=== PATIENT | female | born 1960 | race Caucasian/White ===

== ENCOUNTER → 2016-08-15 | Outpatient (CLI) | payer OTHER ==
[~2016-08-15] MED LIST: HYDR12.55 PO; TRIA0.1C20 TOP; [UNRECOGNIZED DRUG - CODE] PO
--- NOTE | 2016-08-15 16:29 | MAMMOGRAPHY REPORT ---
BILATERAL DIGITAL SCREENING MAMMOGRAM TOMOSYNTHESIS WITH CAD: 08/15/2016 TECHNIQUE: Breast tomosynthesis in addition to standard 2D mammography was performed. Current study was also evaluated with a Computer Aided Detection (CAD) system. COMPARISON: Comparison is made to exams dated: 08/06/2015 mammogram, 08/03/2014 mammogram, 08/02/2013 mammogram, 02/02/2012 mammogram, 07/24/2011 mammogram, and 07/18/2010 mammogram - [facility]. BREAST COMPOSITION: There are scattered areas of fibroglandular density in both breasts. FINDINGS: No suspicious masses, calcifications, or areas of architectural distortion are noted in e ither breast. There has been no significant interval change compared to prior exams. IMPRESSION: ACR BI-RADS CATEGORY 1: NEGATIVE There is no mammographic evidence of malignancy. A 1 year screening mammogram is recommended. The p atient will receive written notification of the results. Approximately 10% of breast cancers are not detected with mammography. A negative mammographic repor t should not delay biopsy if a clinically suggestive mass is present. Marva Orourke M.D. /:08/15/2016 13:40:33 Theatrical Scenic Designer: Arline Caba, [facility] letter sent: Normal 1/2 BI-RADS Code: ACR BI-RADS Category 1: Negative
== END | disposition home or self-care (01) ==
LOC: C.MAMM 10:36
PROVIDERS: ATTEND Obstetrics & Gynecology
DX: Z12.31 Encounter for screening mammogram for malignant neoplasm of breast (principal)

== ENCOUNTER → 2016-09-04 | Outpatient (CLI) | payer OTHER ==
[2016-09-04 12:09] LABS: BASO % 0.8 %; BASO ABS # 0.04 K/uL (0-0.2); COMPLETE YES; EOS % 4.9 %; HEMATOCRIT 42.6 % (37-47); IG% 0.2 %; LYMPH % 22.8 %; LYMPH ABS # 1.11 K/uL (1.2-3.4); MEAN CELL VOLUME 89.3 fL (80-100); MEAN CORPUSCULAR HEMOGLOBIN 30.2 pg (25-34); MEAN CORPUSCULAR HGB CONC 33.8 g/dl (32-36); MEAN PLATELET VOLUME 12.2 fL (7.4-10.4); MONO % 8.6 %; NEUT % 62.7 %; PLATELET COUNT 226 K/uL (130-400); RED BLOOD COUNT 4.77 M/uL (4.2-5.4); WHITE BLOOD COUNT 4.87 K/uL (4.8-10.8)
[2016-09-04 13:46] LABS: BLOOD UREA NITROGEN 24 mg/dl (7-18); BUN/CREATININE RATIO 20.1 (10-20); CALCIUM 9.3 mg/dl (8.5-10.1); CARBON DIOXIDE 27 mmol/L (21-32); CHLORIDE 110 mmol/L (98-107); GLUCOSE 93 mg/dl (70-99); SODIUM 144 mmol/L (136-145)
== END | disposition home or self-care (01) ==
LOC: C.LABBFT 07:44
PROVIDERS: ATTEND Internal Medicine
DX: I10 Essential (primary) hypertension (principal)

== ENCOUNTER → 2017-04-30 | Outpatient (CLI) | payer OTHER | END | disposition home or self-care (01) | LOC: C.PAPS 10:33 | PROVIDERS: ATTEND Obstetrics & Gynecology | DX: Z12.4 Encounter for screening for malignant neoplasm of cervix (principal) ==

== ENCOUNTER → 2017-08-17 | Outpatient (CLI) | payer OTHER ==
--- NOTE | 2017-08-18 13:05 | MAMMOGRAPHY REPORT ---
BILATERAL DIGITAL SCREENING MAMMOGRAM TOMOSYNTHESIS WITH CAD: 08/17/2017 CLINICAL HISTORY: Routine screening. Patient has no complaints. TECHNIQUE: Breast tomosynthesis in addition to standard 2D mammography was performed. Current study was also evaluated with a Computer Aided Detection (CAD) system. COMPARISON: Comparison is made to exams dated: 08/15/2016 mammogram, 08/06/2015 mammogram, 08/03/2014 m ammogram, 07/27/2012 mammogram, 02/02/2012 mammogram, and 07/24/2011 mammogram - [facility] ter. BREAST COMPOSITION: There are scattered areas of fibroglandular density in both breasts. FINDINGS: There is fluctuating nodularity in the breasts. A few scattered benign-appearing microcalc ifications. No suspicious mass, architectural distortion or cluster of suspicious microcalcification s is seen. IMPRESSION: ACR BI-RADS CATEGORY 1: NEGATIVE There is no mammographic evidence of malignancy. A 1 year screening mammogram is recommended. The pa tient will receive written notification of the results. Approximately 10% of breast cancers are not detected with mammography. A negative mammographic report should not delay biopsy if a clinically suggestive mass is present. Shonna Edwards M.D. ay/:08/17/2017 17:20:52 Can Technician: Olive PRESTON)(Sharla), [facility] letter sent: Normal 1/2 BI-RADS Code: ACR BI-RADS Category 1: Negative
== END | disposition home or self-care (01) ==
LOC: C.MAMM 12:14
PROVIDERS: ATTEND Obstetrics & Gynecology
DX: Z12.31 Encounter for screening mammogram for malignant neoplasm of breast (principal)

== ENCOUNTER → 2017-09-02 | Outpatient (CLI) | payer OTHER ==
[2017-09-02 12:53] LABS: BASO % 1.1 %; BASO ABS # 0.05 K/uL (0-0.2); EOS ABS # 0.18 K/uL (0-0.5); HEMATOCRIT 41.9 % (37-47); HEMOGLOBIN 14.1 g/dL (12.0-16.0); IG# 0.01 K/uL (0.00-0.02); LYMPH ABS # 1.03 K/uL (1.2-3.4); MEAN CELL VOLUME 91.3 fL (80-100); MEAN CORPUSCULAR HEMOGLOBIN 30.7 pg (25-34); MEAN CORPUSCULAR HGB CONC 33.7 g/dl (32-36); MEAN PLATELET VOLUME 11.9 fL (7.4-10.4); MONO % 13.2 %; MONO ABS # 0.59 K/uL (0.11-0.59); NEUT % 58.5 %; NEUT ABS # 2.61 K/uL (1.4-6.5); PLATELET COUNT 232 K/uL (130-400); RED CELL DISTRIBUTION WIDTH CV 13.3 % (11.5-14.5); RED CELL DISTRIBUTION WIDTH SD 44.4 fL (36.4-46.3); WHITE BLOOD COUNT 4.47 K/uL (4.8-10.8)
[2017-09-02 13:26] LABS: ALT/SGPT 53 U/L (12-78); AST/SGOT 30 U/L (15-37); BLOOD UREA NITROGEN 18 mg/dl (7-18); CALCIUM 9.3 mg/dl (8.5-10.1); CARBON DIOXIDE 30 mmol/L (21-32); CHOLESTEROL 139 mg/dl (0-200); CREATININE 1.34 mg/dl (0.60-1.20); GLUCOSE 99 mg/dl (70-99); SODIUM 139 mmol/L (136-145)
[2017-09-02 13:35] LABS: ALKALINE PHOSPHATASE 130 U/L (45-117); LDL CHOLESTEROL CALCULATED 83 mg/dl; TOTAL PROTEIN 7.3 gm/dl (6.4-8.2)
== END | disposition home or self-care (01) ==
LOC: C.LABBFT 07:58
PROVIDERS: ATTEND Physician Assistant Medical
DX: Z00.00 Encounter for general adult medical examination without abnormal findings (principal); I10 Essential (primary) hypertension; G25.81 Restless legs syndrome

== ENCOUNTER 2024-02-14 22:33 | Observation (INO) ==
[2024-02-14] MEDS: ONDANSETRON INJ 2 MG/ML 2 ML VIAL ONE (23:06)
[2024-02-14] MEDS: fentaNYL citrate PF 100 MCG/2 ML VIAL IV STA (23:12)
[2024-02-14] MEDS: OPTIRAY 320 125ml IV ONE (23:27)
[2024-02-14 23:34] LABS: Basophils # (auto) 0.04 K/uL (0.00-0.20); Basophils % (auto) 0.5 %; Eosinophils # (auto) 0.11 K/uL (0.00-0.50); Eosinophils % (auto) 1.5 %; Hematocrit (blood only) 41.8 % (37.0-47.0); Hemoglobin 13.9 g/dl (12.0-16.0); Immature Granulocytes # (auto) 0.03 K/uL (0.01-0.20); Immature Granulocytes % (auto) 0.4 %; Lymphocytes # (auto) 0.87 K/uL (1.20-3.40); Lymphocytes % (auto) 11.6 %; Mean Corpuscular Hemoglobin 30.2 pg (25.0-34.0); Mean Corpuscular Hgb Conc 33.3 g/dL (32.0-36.0); Mean Corpuscular Volume 90.7 fL (80.0-100.0); Mean Platelet Volume 11.2 fL (9.4-12.4); Monocytes # (auto) 0.61 K/uL (0.11-0.59); Monocytes % (auto) 8.1 %; Neutrophils # (auto) 5.86 K/uL (1.40-6.50); Neutrophils % (auto) 77.9 %; Platelet Count 235 K/uL (130-400); RDW Coefficient of Variation 12.2 % (11.5-14.5); RDW Standard Deviation 40.3 fL (36.4-46.3); Red Blood Count 4.61 M/uL (4.20-5.40); White Blood Count 7.52 K/ul (4.8-10.8)
--- NOTE | 2024-02-14 23:40 | Emergency Department Note ---
Impression & Plan Acute cholecystitis admit to general surgery-Dr. Hood ED Provider Note NAME: MOISES DELGADILLO AGE: 63 SEX: Female INFORMANT: Patient ED PROVIDER(S): Elenita Almazan DO CHIEF COMPLAINT: Epigastric abdominal pain PLAN: Disposition: admit to Dr. Hood MEDICAL DECISION MAKING: this 63-year-old female patient presents to the emergency department with ongoing epigastric abdominal pain since 2 PM this afternoon. she states that she cannot get comfortable and that the pain radiates through to her back. Patient then developed severe vomiting. While I was in the room evaluating the patient, she had an episode of narrow complex tachycardia on the monitor. She has no cardiac history. She does have a history of hypertension laboratory studies revealed no leukocytosis or anemia. Potassium was slightly low at 3.3. BUN was elevated at 27 creatinine at 1.22. Troponin was negative. The patient was bolused with IV normal saline solution given dose of IV fentanyl and IV Zofran. Patient had a CT scan of the chest and abdomen to rule out aortic dissection. These were negative. Patient is nausea and epigastric abdominal pain seemed to continue and become more localized in the right upper quadrant of the abdomen. She was given a dose of IV Pepcid and went for ultrasound of the gallbladder. This was concerning for acute cholecystitis. I reviewed the results with the patient and her . I discussed the case with Dr. Hood and he will evaluate for further inpatient care. Care/management discussed with: funeral sales manager, Dr. Hood from general surgery Triage Nursing notes: reviewed and agree with them. Vital Signs: reviewed and remarkable for Hypertension Differential Diagnosis: pancreatitis, gastritis, aortic dissection, ulcerative disease, cardiac ischemia, cardiac dysrhythmia Diagnostics, independently interpreted by me: ECG: normal sinus rhythm at a rate of 69 with a right bundle branch block. There is no ST segment elevation or signs of ischemia. There is no ectopy. QTc was 490 ms. I did review this EKG to an EKG from 2019 and it was unchanged. Cardiac Monitoring: Normal sinus rhythm at 77 Imaging studies: CTA scan of the chest: As per stat rad CTA scan of the abdomen/pelvis: As per stat rad right upper quadrant ultrasound: As per stat rad HPI: 63 year old Female arrives for evaluation of epigastric abdominal pain and vomiting. patient had a fairly sudden onset of epigastric abdominal pain and vomiting around 2:00 this afternoon. Patient had been in her usual state of health until that time. She had eaten a hamburger and some velázquez before the pain started. PAST MEDICAL HISTORY: See Below, PAST SURGICAL HISTORY: See Below, SOCIAL HISTORY: See Below, HOME MEDICATIONS: see list ALLERGIES: see list VITALS: See Below PHYSICAL EXAMINATION: HEENT: Head - normocephalic and atraumatic. Pupils are equal, round, and reactive to light. Extraocular eye muscles are intact, and sclera are anicteric. Nose - moist nasal mucosa without discharge. Mouth - moist buccal mucosa. Oropharynx is nonerythematous and there is no tonsillar exudate or edema noted. Neck: Supple; no cervical lymphadenopathy Heart: Regular rate and rhythm. There is a normal S1 and S2 with no murmurs, clicks, or gallops appreciated. Lungs: Clear to auscultation bilaterally with no wheezes, rales, or rhonchi. Abdomen: Soft, Moderate pain to palpation in the epigastrium and right upper quadrant. Rest of the abdomen is nondistended, with good bowel sounds. There are no palpable pulsatile masses or hepatosplenomegaly. There is no guarding, rigidity, or rebound noted. Extremities: No evidence of cyanosis, clubbing, or edema. There are easily palpable peripheral pulses. Skin: warm and dry with good turgor and no rashes. emergency department treatment: groundwater monitoring technician, IV fentanyl, IV Zofran, IV normal saline, IV Pepcid emergency department course: The patient was evaluated in room B-11. A complete history and physical was performed. IV lock was initiated and labs were drawn as above. Patient was given a dose of Zofran and fentanyl for her pain and nausea. An order was placed for continuous cardiac monitoring. The patient is in a normal sinus rhythm at a rate of 77. A twelve-lead EKG was obtained.. She was thought to be somewhat dehydrated and was bolused with IV normal saline solution. While I was in the room examining the patient, I noted on the bus driver/monitor that she was in a tachycardic rhythm for a short period of time. This rhythm appeared to be sinus tachycardia and was narrow complex.The patient went for CT angiogram of the chest and abdomen to rule out aortic dissection. Upon returning from radiology, the patient continued to complain of some epigastric discomfort was given a dose of IV Pepcid. I reexamined the patient and her reproducible discomfort was more in the right upper quadrant of the abdomen. Patient went for an ultrasound of the gallbladder which was positive for acute cholecystitis. Patient was kept n.p.o. and I discussed the case with Dr. Hood. Past Med/Surg History Problem List (Updated 02/15/24 @ 04:44 by Elenita Almazan DO) Acute cholecystitis (Acute) Localized morphea (Chronic) right side/ back Impaired fasting blood sugar (Chronic) Restless legs syndrome (Chronic) Mitral regurgitation (Chronic) trace Hypertension (Chronic) Allergic rhinitis (Chronic) Medical History Localized morphea Impaired fasting blood sugar Restless legs syndrome Mitral regurgitation Hypertension Allergic rhinitis Surgical History History of surgery on lower extremity History of colonoscopy History of breast biopsy History of tubal ligation Family History Father Lung cancer Mother Hypertension Dementia Aunt Breast cancer Denies family history of Ovarian cancer Colorectal cancer Cancer Uterine cancer Social History (Updated 09/16/23 @ 15:39 by Rain Valenzuela LPN) Smoking Status: Never smoker Second Hand Exposure: No; Do You Dip or Chew Tobacco: No; Hx Alcohol Use: No Hx Substance Use: No Preferred Language: Ethiopian Communication Ability: Effective Production Zone Leader Required: No Beliefs That Will Affect Care: None marital status: Current Living Situation: Spouse current occupational status: retired Feels Safe at Home: Yes Childhood Exposure to Second-Hand Smoke: Yes Diet: regular caffeine: Yes Dental Care, Regularly: Yes Physical Activity Frequency: 3-4 Times per Week Seatbelt Use: always Sunscreen Use: Yes Assistive Devices: Glasses Allergies Allergies Allergy/AdvReac Type Severity Reaction Status Date / Time adhesive tape Allergy Intermediate Rash Verified 09/16/23 15:32 erythromycin base Allergy Unknown Rash Verified 09/16/23 15:32 Penicillins Allergy Unknown RASH Verified 09/16/23 15:32 phenylephrine Allergy Unknown RASH-OTC Verified 09/16/23 15:32 DECONGESTANTS pseudoephedrine Allergy Unknown RASH-OTC Verified 09/16/23 15:32 DECONGESTANTS Sulfa (Sulfonamide Allergy Unknown RASH Verified 09/16/23 15:32 Antibiotics) doxycycline Allergy Unknown Verified 09/16/23 15:32 Home Meds Home Medications Medication Instructions Recorded Confirmed fexofenadine 180 mg tablet 180 mg PO DAILY PRN Allergy 02/19/19 09/16/23 Symptoms cholecalciferol (vitamin D3) 25 25 mcg PO DAILY 09/03/21 12/30/22 mcg (1,000 unit) capsule Previous Rx's Medication Instructions Recorded mupirocin 2 % topical ointment 1 applic topical BID #22 grams 03/11/22 clobetasol 0.05 % topical cream 1 applic topical BID 2 weeks #45 06/23/22 grams amlodipine 5 mg tablet 5 mg PO DAILY #90 tabs 07/02/23 clobetasol 0.05 % topical ointment 1 applic topical BID 2 weeks #45 09/16/23 grams hydrochlorothiazide 12.5 mg tablet 12.5 mg PO DAILY #90 tabs 02/05/24 Results & Data (ED) Vital Signs Vital Signs - 24 hr 02/14/24 22:36 02/14/24 22:47 02/14/24 22:47 Temperature 36.6 C 36.8 C Temperature Source Temporal Artery Scan Oral Pulse Rate 79 71 Pulse Rate [Apical] 73 Pulse Rate from SpO2 Sensor Respiratory Rate 16 14 Blood Pressure 128/76 Blood Pressure [Left Arm] 173/70 H Blood Pressure Mean 93 Blood Pressure Mean [Left Arm] 104 Pulse Oximetry 95 96 Oxygen Delivery Method Room Air Sepsis Recent Fever Within 48 Hours No Sepsis New/Unexplained Change in Mental Status No Sepsis Action Taken by Nursing No Action Required 02/14/24 23:04 02/14/24 23:08 02/14/24 23:31 Temperature Temperature Source Pulse Rate 77 72 Pulse Rate [Apical] Pulse Rate from SpO2 Sensor Respiratory Rate 16 26 H Blood Pressure 151/78 H 182/80 H Blood Pressure [Left Arm] Blood Pressure Mean 104 117 Blood Pressure Mean [Left Arm] Pulse Oximetry 98 93 93 Oxygen Delivery Method Room Air Room Air Sepsis Recent Fever Within 48 Hours Sepsis New/Unexplained Change in Mental Status Sepsis Action Taken by Nursing 02/15/24 00:00 02/15/24 00:30 02/15/24 01:30 Temperature Temperature Source Pulse Rate 74 76 78 Pulse Rate [Apical] Pulse Rate from SpO2 Sensor Respiratory Rate 14 14 16 Blood Pressure 178/86 H 179/83 H 154/87 H Blood Pressure [Left Arm] Blood Pressure Mean 102 123 126 Blood Pressure Mean [Left Arm] Pulse Oximetry 95 96 98 Oxygen Delivery Method Room Air Room Air Sepsis Recent Fever Within 48 Hours Sepsis New/Unexplained Change in Mental Status Sepsis Action Taken by Nursing 02/15/24 02:00 02/15/24 02:48 02/15/24 02:57 Temperature Temperature Source Pulse Rate 69 Pulse Rate [Apical] 77 Pulse Rate from SpO2 Sensor Respiratory Rate 16 Blood Pressure 165/85 H Blood Pressure [Left Arm] 158/83 H Blood Pressure Mean 112 Blood Pressure Mean [Left Arm] 108 Pulse Oximetry 94 Oxygen Delivery Method Room Air Sepsis Recent Fever Within 48 Hours Sepsis New/Unexplained Change in Mental Status Sepsis Action Taken by Nursing 02/15/24 03:00 02/15/24 03:27 02/15/24 03:30 Temperature Temperature Source Pulse Rate 74 71 72 Pulse Rate [Apical] Pulse Rate from SpO2 Sensor 68 71 Respiratory Rate 14 21 21 Blood Pressure 166/75 H Blood Pressure [Left Arm] Blood Pressure Mean 129 Blood Pressure Mean [Left Arm] Pulse Oximetry 94 95 96 Oxygen Delivery Method Room Air Sepsis Recent Fever Within 48 Hours Sepsis New/Unexplained Change in Mental Status Sepsis Action Taken by Nursing 02/15/24 04:00 02/15/24 04:00 02/15/24 04:00 Temperature Temperature Source Pulse Rate 85 Pulse Rate [Apical] Pulse Rate from SpO2 Sensor 85 Respiratory Rate 25 H Blood Pressure 204/97 H 204/97 H 204/97 H Blood Pressure [Left Arm] Blood Pressure Mean 132 148 148 Blood Pressure Mean [Left Arm] Pulse Oximetry 97 Oxygen Delivery Method Sepsis Recent Fever Within 48 Hours Sepsis New/Unexplained Change in Mental Status Sepsis Action Taken by Nursing Laboratory Data 02/14/24 23:03 02/14/24 23:03 Lab Results 02/14/24 02/15/24 Range/Units 23:03 01:00 WBC 7.52 (4.8-10.8) K/ul RBC 4.61 (4.20-5.40) M/uL Hgb 13.9 (12.0-16.0) g/dl Hct 41.8 (37.0-47.0) % MCV 90.7 (80.0-100.0) fL MCH 30.2 (25.0-34.0) pg MCHC 33.3 (32.0-36.0) g/dL RDW Std Deviation 40.3 (36.4-46.3) fL RDW Coeff of Karen 12.2 (11.5-14.5) % Plt Count 235 (130-400) K/uL MPV 11.2 (9.4-12.4) fL Immature Gran % (Auto) 0.4 % Neut % (Auto) 77.9 % Lymph % (Auto) 11.6 % Nicholas % (Auto) 8.1 % Eos % (Auto) 1.5 % Baso % (Auto) 0.5 % Neut # (Auto) 5.86 (1.40-6.50) K/uL Lymph # (Auto) 0.87 L (1.20-3.40) K/uL Nicholas # (Auto) 0.61 H (0.11-0.59) K/uL Eos # (Auto) 0.11 (0.00-0.50) K/uL Baso # (Auto) 0.04 (0.00-0.20) K/uL Immature Gran # (Auto) 0.03 (0.01-0.20) K/uL Sodium 142 (136-145) mmol/L Potassium 3.3 L (3.5-5.1) mmol/L Chloride 101 (98-107) mmol/L Carbon Dioxide 32 (21-32) mmol/L Anion Gap 9 (3-11) BUN 27 H (6-23) mg/dl Creatinine 1.22 H (0.6-1.2) mg/dl Est Cr Clr Drug Dosing 47.3 ml/min Est GFR ( Amer) 54.2 ml/min Est GFR (Non-Af Amer) 46.8 ml/min BUN/Creatinine Ratio 22.1 H (10-20) Glucose 165 H (70-99(Fasting)) mg/dl Calcium 10.5 H (8.6-10.3) mg/dl Total Bilirubin 0.4 (0.2-1.0) mg/dl AST 20 (13-39) U/L ALT 22 (7-52) U/L Alkaline Phosphatase 99 (34-104) U/L Troponin I High Sens 7.5 (0-14) pg/ml Total Protein 7.3 (6.0-8.3) gm/dl Albumin 4.5 (3.4-5.0) gm/dl Globulin 2.8 (2.5-4.0) gm/dl Albumin/Globulin Ratio 1.6 (0.9-2) Lipase 29 (11-82) U/L Urine Color Yellow Urine Appearance Clear (Clear) Urine pH 7.5 (4.5-7.5) Ur Specific [place] 1.034 H (1.000-1.030) Urine Protein Negative (Negative) Urine Glucose (UA) Negative (Negative) Urine Ketones Negative (Negative) Urine Blood Negative (Negative) Urine Nitrite Negative (Negative) Urine Bilirubin Negative (Negative) Urine Urobilinogen Negative (Negative) Ur Leukocyte Esterase Negative (Negative) Administered Medications Discontinued Medications Fentanyl Citrate (Fentanyl Citrate Pf 100 Mcg/2 Ml Vial) 50 mcg IV NOW STA Stop: 02/14/24 23:09 Last Admin: 02/14/24 23:12 Dose: 50 mcg Documented By: KAITY Sodium Chloride (Nss) 1,000 mls @ 999 mls/hr IV .Q1H1M ONE Stop: 02/15/24 01:03 Last Infusion: 02/15/24 01:06 Dose: Infused Documented By: Admin: 02/15/24 00:10 Dose: 999 mls/hr Documented By: KAITY Famotidine (Pepcid 20mg Iv Push) 20 mg in 5 mls @ 2.5 mls/min IV NOW STA Stop: 02/15/24 01:43 Last Admin: 02/15/24 01:46 Dose: 2.5 mls/min Documented By: KAITY Ioversol (Optiray 320 125ml) 120 ml IV ONCE ONE Stop: 02/14/24 23:28 Last Admin: 02/14/24 23:27 Dose: 120 ml Documented By: VESNA Ondansetron HCl (Ondansetron Inj 2 Mg/Ml 2 Ml Vial) Confirm Administered Dose 4 mg .ROUTE .STK-MED ONE Stop: 02/14/24 23:06 Last Admin: 02/14/24 23:06 Dose: 4 mg Documented By: KAITY Imaging Data Radiologist's Impression: Abdomen/Pelvis CTA 02/14/24 23:07 Exam(s): CTA ABDOMEN + PELVIS W/WO Contrast IV Amt: 118 cc opti 320 EXAM: CT Angiography Chest and CT Abdomen and Pelvis With Intravenous Contrast CLINICAL HISTORY: Reason for exam: rule out dissection. TECHNIQUE: Axial computed tomographic angiography images of the chest and axial computed tomography images of the abdomen and pelvis with intravenous contrast. CTDI is 27.36 mGy and DLP is 1211.81 mGy-cm. Automated exposure control was utilized for the study. A dose lowering technique was utilized adhering to the principles of ALARA. MIP reconstructed images were created and reviewed. CONTRAST: Patient received 118 cc opti 320 of IV contrast COMPARISON: No relevant prior studies available. FINDINGS: CHEST: Aorta: There are mild scattered aortic calcifications. No aneurysm or dissection is noted. Pulmonary arteries: Unremarkable as visualized. No pulmonary embolism is identified. Great vessels of aortic arch: No acute findings. No dissection. No arterial occlusion or significant stenosis. Lungs: Unremarkable. No mass. No consolidation. Pleural space: Unremarkable. No significant effusion. No pneumothorax. Heart: Unremarkable. No cardiomegaly. No significant pericardial effusion. ABDOMEN: Liver: Unremarkable. No mass. Gallbladder and bile ducts: The gallbladder is distended and measures up to 13 cm. There are several intraluminal stones. There is mild gallbladder wall thickening. No pericholecystic stranding is noted. No ductal dilation. Pancreas: Unremarkable. No ductal dilation. No mass. Spleen: Unremarkable. No splenomegaly. Adrenals: Unremarkable. No mass. Kidneys and ureters: Unremarkable. No hydronephrosis. No solid mass. Stomach and bowel: Unremarkable. No obstruction. No mucosal thickening. PELVIS: Appendix: No findings to suggest acute appendicitis. Bladder: Unremarkable. No mass. Reproductive: Unremarkable as visualized. CHEST, ABDOMEN and PELVIS: Intraperitoneal space: Unremarkable. No significant fluid collection. No free air. Bones/joints: No acute fracture. No dislocation. Soft tissues: Unremarkable. Vasculature: The mesenteric and renal arteries are patent. Lymph nodes: Unremarkable. No enlarged lymph nodes. Other findings: There is advanced L5/S1 degenerative disk disease. IMPRESSION: 1. The gallbladder is significantly distended with mild wall thickening and numerous intraluminal stones. Underlying cholecystitis is a consideration. Clinical correlation and follow up recommended. No additional acute intraabdominal or pelvic abnormalities are noted.. 2. No abdominal aortic aneurysm or dissection is noted. Electronically signed by: David Patterson MD 02/15/24 00:48 AM Chest CTA 02/14/24 23:07 Exam(s): CTA CHEST W/WO Contrast IV Amt: 118 cc opti 320 EXAM: CT Angiography Chest Without and With Intravenous Contrast CLINICAL HISTORY: Reason for exam: epigastric pain/back pain. TECHNIQUE: Axial computed tomographic angiography images of the chest without and with intravenous contrast. CTDI is 26.07 mGy and DLP is 1702.09 mGy-cm. Automated exposure control was utilized for the study. A dose lowering technique was utilized adhering to the principles of ALARA. MIP reconstructed images were created and reviewed. CONTRAST: Patient received 118 cc opti 320 of IV contrast COMPARISON: No relevant prior studies available. FINDINGS: Pulmonary arteries: Unremarkable. No pulmonary embolism. Aorta: See below. Lungs: Unremarkable. No mass. No consolidation. Pleural space: Unremarkable. No significant effusion. No pneumothorax. Heart: There are scattered coronary artery calcifications. No cardiomegaly. No significant pericardial effusion. No evidence of RV dysfunction. Mediastinum: There are mildly enlarged partially calcified mediastinal and hilar lymph nodes. The largest aorticopulmonary window node measures up to 2.0 cm in short axis diameter. The subcarinal mediastinal node measures up to 2.5 cm in short axis diameter. Bones/joints: No acute fracture. No dislocation. Soft tissues: Unremarkable. Lymph nodes: See above. IMPRESSION: 1. No pulmonary artery embolism, thoracic aortic aneurysm or dissection. 2. Bilateral hilar and mediastinal centrally calcified lymphadenopathy, probably related to chronic granulomatous reaction. Pulmonary consultation and follow up recommended. 3. No acute cardiopulmonary abnormality. Electronically signed by: David Patterson MD 02/15/24 00:28 AM Gallbladder Ultrasound 02/15/24 01:42 Exam(s): US GALLBLADDER EXAM: US Abdomen Limited, Gallbladder CLINICAL HISTORY: Reason for exam: ruq pain; epigastric pain. TECHNIQUE: Real-time ultrasound of the right upper quadrant with image documentation. COMPARISON: CT abdomen pelvis 02/14/2024 FINDINGS: Liver: Echogenic mildly enlarged liver. Gallbladder: Distended gallbladder filled with sludge. Gallbladder stones, largest measures 2 cm and appears mobile. Mild gallbladder wall thickening. No pericholecystic fluid. Common bile duct: CBD 6.9 mm, mild dilation. No stones. Pancreas: Unremarkable as visualized. IMPRESSION: 1. Distended gallbladder with sludge and mobile gallstones. Mild gallbladder wall thickening. Findings may represent acute cholecystitis. 2. Echogenic mildly enlarged liver. May represent hepatic steatosis. Electronically signed by: Janice Templeton M.D. 02/15/24 03:26 AM Discharge Plan Visit Data Chief Complaint: Vomiting Stated Complaint: STOMACH PAIN, VOMITING ED Provider: Elenita Almazan Discharge Problem: Acute cholecystitis Forms Stand Alone Forms: [facility] Prescriptions Prescriptions: No Action amlodipine 5 mg tablet 5 mg PO DAILY Qty: 90 3RF hydrochlorothiazide 12.5 mg tablet 12.5 mg PO DAILY Qty: 90 3RF clobetasol 0.05 % cream 1 applic topical BID 14 Days Qty: 45 3RF clobetasol 0.05 % ointment 1 applic topical BID 14 Days Qty: 45 1RF cholecalciferol (vitamin D3) 25 mcg (1,000 unit) capsule 25 mcg PO DAILY mupirocin 2 % ointment 1 applic topical BID Qty: 22 0RF Rx Instructions: Apply BID to the biopsy site for 7 days. fexofenadine 180 mg Tablet 180 mg PO DAILY PRN (Reason: Allergy Symptoms) Referrals Referrals: Annalisa Gaspar MD [Primary Care Provider] -
[2024-02-14 23:51] LABS: Albumin Globulin Ratio 1.6 (0.9-2); Albumin Level 4.5 gm/dl (3.4-5.0); BUN Creatinine Ratio 22.1 (10-20); Bilirubin,Total 0.4 mg/dl (0.2-1.0); Calcium 10.5 mg/dl (8.6-10.3); Creatinine Clr Calc Pharmacy 47.3 ml/min; Est GFR (African American) 54.2 ml/min; Est GFR (Non-African American) 46.8 ml/min; Globulin 2.8 gm/dl (2.5-4.0); Potassium 3.3 mmol/L (3.5-5.1); Total Protein 7.3 gm/dl (6.0-8.3)
[2024-02-14 23:58] LABS: Troponin I High Sensitivity 7.5 pg/ml (0-14)
[2024-02-15] MEDS: SODIUM CHLORIDE 0.9% 1,000 ML IV ONE (00:10)
--- NOTE | 2024-02-15 00:28 | CT Scan Report ---
Exam(s): CTA CHEST W/WO Contrast IV Amt: 118 cc opti 320 EXAM: CT Angiography Chest Without and With Intravenous Contrast CLINICAL HISTORY: Reason for exam: epigastric pain/back pain. TECHNIQUE: Axial computed tomographic angiography images of the chest without and with intravenous contrast. CTDI is 26.07 mGy and DLP is 1702.09 mGy-cm. Automated exposure control was utilized for the study. A dose lowering technique was utilized adhering to the principles of ALARA. MIP reconstructed images were created and reviewed. CONTRAST: Patient received 118 cc opti 320 of IV contrast COMPARISON: No relevant prior studies available. FINDINGS: Pulmonary arteries: Unremarkable. No pulmonary embolism. Aorta: See below. Lungs: Unremarkable. No mass. No consolidation. Pleural space: Unremarkable. No significant effusion. No pneumothorax. Heart: There are scattered coronary artery calcifications. No cardiomegaly. No significant pericardial effusion. No evidence of RV dysfunction. Mediastinum: There are mildly enlarged partially calcified mediastinal and hilar lymph nodes. The largest aorticopulmonary window node measures up to 2.0 cm in short axis diameter. The subcarinal mediastinal node measures up to 2.5 cm in short axis diameter. Bones/joints: No acute fracture. No dislocation. Soft tissues: Unremarkable. Lymph nodes: See above. IMPRESSION: 1. No pulmonary artery embolism, thoracic aortic aneurysm or dissection. 2. Bilateral hilar and mediastinal centrally calcified lymphadenopathy, probably related to chronic granulomatous reaction. Pulmonary consultation and follow up recommended. 3. No acute cardiopulmonary abnormality. Electronically signed by: David Patterson MD 02/15/24 00:28 AM
--- NOTE | 2024-02-15 00:49 | CT Scan Report ---
Exam(s): CTA ABDOMEN + PELVIS W/WO Contrast IV Amt: 118 cc opti 320 EXAM: CT Angiography Chest and CT Abdomen and Pelvis With Intravenous Contrast CLINICAL HISTORY: Reason for exam: rule out dissection. TECHNIQUE: Axial computed tomographic angiography images of the chest and axial computed tomography images of the abdomen and pelvis with intravenous contrast. CTDI is 27.36 mGy and DLP is 1211.81 mGy-cm. Automated exposure control was utilized for the study. A dose lowering technique was utilized adhering to the principles of ALARA. MIP reconstructed images were created and reviewed. CONTRAST: Patient received 118 cc opti 320 of IV contrast COMPARISON: No relevant prior studies available. FINDINGS: CHEST: Aorta: There are mild scattered aortic calcifications. No aneurysm or dissection is noted. Pulmonary arteries: Unremarkable as visualized. No pulmonary embolism is identified. Great vessels of aortic arch: No acute findings. No dissection. No arterial occlusion or significant stenosis. Lungs: Unremarkable. No mass. No consolidation. Pleural space: Unremarkable. No significant effusion. No pneumothorax. Heart: Unremarkable. No cardiomegaly. No significant pericardial effusion. ABDOMEN: Liver: Unremarkable. No mass. Gallbladder and bile ducts: The gallbladder is distended and measures up to 13 cm. There are several intraluminal stones. There is mild gallbladder wall thickening. No pericholecystic stranding is noted. No ductal dilation. Pancreas: Unremarkable. No ductal dilation. No mass. Spleen: Unremarkable. No splenomegaly. Adrenals: Unremarkable. No mass. Kidneys and ureters: Unremarkable. No hydronephrosis. No solid mass. Stomach and bowel: Unremarkable. No obstruction. No mucosal thickening. PELVIS: Appendix: No findings to suggest acute appendicitis. Bladder: Unremarkable. No mass. Reproductive: Unremarkable as visualized. CHEST, ABDOMEN and PELVIS: Intraperitoneal space: Unremarkable. No significant fluid collection. No free air. Bones/joints: No acute fracture. No dislocation. Soft tissues: Unremarkable. Vasculature: The mesenteric and renal arteries are patent. Lymph nodes: Unremarkable. No enlarged lymph nodes. Other findings: There is advanced L5/S1 degenerative disk disease. IMPRESSION: 1. The gallbladder is significantly distended with mild wall thickening and numerous intraluminal stones. Underlying cholecystitis is a consideration. Clinical correlation and follow up recommended. No additional acute intraabdominal or pelvic abnormalities are noted.. 2. No abdominal aortic aneurysm or dissection is noted. Electronically signed by: David Patterson MD 02/15/24 00:48 AM
[2024-02-15 01:17] LABS: Appearance Urine Clear (Clear); Bilirubin Urine Negative (Negative); Blood Urine Negative (Negative); Color Urine Yellow; Glucose Urine UA Negative (Negative); Ketones Urine Negative (Negative); Leukocyte Esterase Urine Negative (Negative); Nitrite Urine Negative (Negative); Protein Urine Negative (Negative); Specific Gravity Urine 1.034 (1.000-1.030); Urobilinogen Urine Negative (Negative); pH Urine 7.5 (4.5-7.5)
[2024-02-15] MEDS: FAMOTIDINE 20MG IV PUSH 20 MG/5 ML SYR IV STA (01:46)
--- NOTE | 2024-02-15 03:27 | Ultrasound Report ---
Exam(s): US GALLBLADDER EXAM: US Abdomen Limited, Gallbladder CLINICAL HISTORY: Reason for exam: ruq pain; epigastric pain. TECHNIQUE: Real-time ultrasound of the right upper quadrant with image documentation. COMPARISON: CT abdomen pelvis 02/14/2024 FINDINGS: Liver: Echogenic mildly enlarged liver. Gallbladder: Distended gallbladder filled with sludge. Gallbladder stones, largest measures 2 cm and appears mobile. Mild gallbladder wall thickening. No pericholecystic fluid. Common bile duct: CBD 6.9 mm, mild dilation. No stones. Pancreas: Unremarkable as visualized. IMPRESSION: 1. Distended gallbladder with sludge and mobile gallstones. Mild gallbladder wall thickening. Findings may represent acute cholecystitis. 2. Echogenic mildly enlarged liver. May represent hepatic steatosis. Electronically signed by: Janice Templeton M.D. 02/15/24 03:26 AM
[2024-02-15] MEDS: SODIUM CHLORIDE 0.9% 500 ML IV SCH (05:10)
--- NOTE | 2024-02-15 05:55 | History & Physical Report ---
Date of Service February 15, 2024 Assessment & Plan (1) Acute cholecystitis: Plan 63-year-old woman with acute cholecystitis. We discussed the risks and benefits of a laparoscopic cholecystectomy All her questions were answered and she is agreeable to proceed. we will take her to the operating room at the earliest convenience. History of Present Illness Primary Care Provider: Annalisa Gaspar MD 63-year-old woman presents with an 18-hour history of severe sharp stabbing abdominal pain in the right upper quadrant. This began after eating a hamburger for lunch yesterday. She did have vomiting and nausea last evening. She has not eaten anything today. The pain has slightly worsened. She denies fevers or chills. She denies ever having pain like this in the past. Allergies Allergy/AdvReac Type Severity Reaction Status Date / Time adhesive tape Allergy Intermediate Rash Verified 09/16/23 15:32 erythromycin base Allergy Unknown Rash Verified 09/16/23 15:32 Penicillins Allergy Unknown RASH Verified 09/16/23 15:32 phenylephrine Allergy Unknown RASH-OTC Verified 09/16/23 15:32 DECONGESTANTS pseudoephedrine Allergy Unknown RASH-OTC Verified 09/16/23 15:32 DECONGESTANTS Sulfa (Sulfonamide Allergy Unknown RASH Verified 09/16/23 15:32 Antibiotics) doxycycline Allergy Unknown Verified 09/16/23 15:32 Home Medications Medication Instructions Recorded Confirmed Type fexofenadine 180 mg tablet 180 mg PO DAILY PRN Allergy 02/19/19 09/16/23 History Symptoms cholecalciferol (vitamin D3) 25 25 mcg PO DAILY 09/03/21 12/30/22 History mcg (1,000 unit) capsule mupirocin 2 % topical ointment 1 applic topical BID #22 grams 03/11/22 09/16/23 Rx clobetasol 0.05 % topical cream 1 applic topical BID 2 weeks #45 06/23/22 09/16/23 Rx grams amlodipine 5 mg tablet 5 mg PO DAILY #90 tabs 07/02/23 09/16/23 Rx clobetasol 0.05 % topical ointment 1 applic topical BID 2 weeks #45 09/16/23 09/16/23 Rx grams hydrochlorothiazide 12.5 mg tablet 12.5 mg PO DAILY #90 tabs 02/05/24 Rx Past Med/Surg History Problem List Acute cholecystitis (Acute) Localized morphea (Chronic) right side/ back Impaired fasting blood sugar (Chronic) Restless legs syndrome (Chronic) Mitral regurgitation (Chronic) trace Hypertension (Chronic) Allergic rhinitis (Chronic) Surgical History History of surgery on lower extremity R hamstring repair History of colonoscopy History of breast biopsy "History of biopsy breast percutaneous needle core" on ccd History of tubal ligation Family History Father , age 61 Lung cancer Mother , age 76 dementia and hypertension, was a [place] [facility] resident Hypertension Dementia Aunt Breast cancer paternal Denies family history of Ovarian cancer Colorectal cancer Cancer Uterine cancer Social History Smoking Status: Never smoker Second Hand Exposure: No; Do You Dip or Chew Tobacco: No; Hx Alcohol Use: No Hx Substance Use: No Preferred Language: Japanese Communication Ability: Effective Apartment Leasing Specialist Required: No Beliefs That Will Affect Care: None marital status: Current Living Situation: Spouse current occupational status: retired Feels Safe at Home: Yes Childhood Exposure to Second-Hand Smoke: Yes Diet: regular caffeine: Yes Dental Care, Regularly: Yes Physical Activity Frequency: 3-4 Times per Week Seatbelt Use: always Sunscreen Use: Yes Assistive Devices: Glasses Review of Systems Review of Systems: All systems reviewed & are unremarkable except as noted in HPI & below Physical Exam Constitutional: WD/WN, vitals as above Eyes: PERRL, conjunctivae normal, anicteric sclerae Neck: trachea midline, no thyromegaly Respiratory: normal respiratory effort; no respiratory distress and no labored breathing Cardiovascular: Rate/Rhythm: regular rate and regular rhythm Gastrointestinal (Abdomen): Inspection/Auscultation: abdomen normal to inspection; abdomen not distended Percussion/Palpation: + abdomen tender ( RUQ) and abdomen soft; no guarding and abdomen not rigid Skin: no rashes, warm and dry Results & Data Results & Data Vital Signs (Past 12 Hours) Vital Signs Temp Pulse Pulse Resp BP BP Pulse Ox 02/15/24 04:00 204/97 H 02/15/24 04:00 204/97 H 02/15/24 04:00 85 25 H 204/97 H 97 02/15/24 03:30 72 21 96 02/15/24 03:27 71 21 95 02/15/24 03:00 74 14 166/75 H 94 02/15/24 02:57 77 16 158/83 H 94 02/15/24 02:48 69 02/15/24 02:00 165/85 H 02/15/24 01:30 78 16 154/87 H 98 02/15/24 00:30 76 14 179/83 H 96 02/15/24 00:00 74 14 178/86 H 95 02/14/24 23:31 72 26 H 182/80 H 93 02/14/24 23:08 93 02/14/24 23:04 77 16 151/78 H 98 02/14/24 22:47 36.8 C 73 14 173/70 H 96 02/14/24 22:47 71 02/14/24 22:36 36.6 C 79 16 128/76 95 O2 Del Method 02/15/24 04:00 02/15/24 04:00 02/15/24 04:00 02/15/24 03:30 02/15/24 03:27 02/15/24 03:00 Room Air 02/15/24 02:57 Room Air 02/15/24 02:48 02/15/24 02:00 02/15/24 01:30 Room Air 02/15/24 00:30 02/15/24 00:00 Room Air 02/14/24 23:31 Room Air 02/14/24 23:08 Room Air 02/14/24 23:04 02/14/24 22:47 Room Air 02/14/24 22:47 02/14/24 22:36 Laboratory Results 02/15/24 02/14/24 Range/Units 01:00 23:03 WBC 7.52 (4.8-10.8) K/ul RBC 4.61 (4.20-5.40) M/uL Hgb 13.9 (12.0-16.0) g/dl Hct 41.8 (37.0-47.0) % MCV 90.7 (80.0-100.0) fL MCH 30.2 (25.0-34.0) pg MCHC 33.3 (32.0-36.0) g/dL RDW Std Deviation 40.3 (36.4-46.3) fL RDW Coeff of Karen 12.2 (11.5-14.5) % Plt Count 235 (130-400) K/uL MPV 11.2 (9.4-12.4) fL Immature Gran % (Auto) 0.4 % Neut % (Auto) 77.9 % Lymph % (Auto) 11.6 % [place] % (Auto) 8.1 % Eos % (Auto) 1.5 % Baso % (Auto) 0.5 % Neut # (Auto) 5.86 (1.40-6.50) K/uL Lymph # (Auto) 0.87 L (1.20-3.40) K/uL [place] # (Auto) 0.61 H (0.11-0.59) K/uL Eos # (Auto) 0.11 (0.00-0.50) K/uL Baso # (Auto) 0.04 (0.00-0.20) K/uL Immature Gran # (Auto) 0.03 (0.01-0.20) K/uL Sodium 142 (136-145) mmol/L Potassium 3.3 L (3.5-5.1) mmol/L Chloride 101 (98-107) mmol/L Carbon Dioxide 32 (21-32) mmol/L Anion Gap 9 (3-11) BUN 27 H (6-23) mg/dl Creatinine 1.22 H (0.6-1.2) mg/dl Est Cr Clr Drug Dosing 47.3 ml/min Est GFR ( Amer) 54.2 ml/min Est GFR (Non-Af Amer) 46.8 ml/min BUN/Creatinine Ratio 22.1 H (10-20) Glucose 165 H (70-99(Fasting)) mg/dl Calcium 10.5 H (8.6-10.3) mg/dl Total Bilirubin 0.4 (0.2-1.0) mg/dl AST 20 (13-39) U/L ALT 22 (7-52) U/L Alkaline Phosphatase 99 (34-104) U/L Troponin I High Sens 7.5 (0-14) pg/ml Total Protein 7.3 (6.0-8.3) gm/dl Albumin 4.5 (3.4-5.0) gm/dl Globulin 2.8 (2.5-4.0) gm/dl Albumin/Globulin Ratio 1.6 (0.9-2) Lipase 29 (11-82) U/L Urine Color Yellow Urine Appearance Clear (Clear) Urine pH 7.5 (4.5-7.5) Ur Specific [place] 1.034 H (1.000-1.030) Urine Protein Negative (Negative) Urine Glucose (UA) Negative (Negative) Urine Ketones Negative (Negative) Urine Blood Negative (Negative) Urine Nitrite Negative (Negative) Urine Bilirubin Negative (Negative) Urine Urobilinogen Negative (Negative) Ur Leukocyte Esterase Negative (Negative) Diagnostic Findings Exam(s): US GALLBLADDER EXAM: US Abdomen Limited, Gallbladder CLINICAL HISTORY: Reason for exam: ruq pain; epigastric pain. TECHNIQUE: Real-time ultrasound of the right upper quadrant with image documentation. COMPARISON: CT abdomen pelvis 02/14/2024 FINDINGS: Liver: Echogenic mildly enlarged liver. Gallbladder: Distended gallbladder filled with sludge. Gallbladder stones, largest measures 2 cm and appears mobile. Mild gallbladder wall thickening. No pericholecystic fluid. Common bile duct: CBD 6.9 mm, mild dilation. No stones. Pancreas: Unremarkable as visualized. IMPRESSION: 1. Distended gallbladder with sludge and mobile gallstones. Mild gallbladder wall thickening. Findings may represent acute cholecystitis. 2. Echogenic mildly enlarged liver. May represent hepatic steatosis. Electronically signed by: Janice Templeton M.D. 02/15/24 03:26 AM
[2024-02-15] MEDS: PIPERACILLIN/TAZOBACTAM 4.5 GM/100 ML BAG IV ONE (05:56)
--- NOTE | 2024-02-15 07:03 | Anesthesiology Consultation ---
Date of Service February 15, 2024 Assessment & Plan (1) Hypertension: (2) Mitral regurgitation: Chart Review Chart Review: Acceptable Risk for Surgery and Patient NOT seen in Pre Admission Testing History Surgery Operation Date: 02/15/24 10:10 Proposed Procedures p Laparoscopic Cholecystectomy - Chilango Hood MD Height/Weight Height: 5 ft 4 in Weight: 78.8 kg Allergies Allergy/AdvReac Type Severity Reaction Status Date / Time adhesive tape Allergy Intermediate Rash Verified 09/16/23 15:32 erythromycin base Allergy Unknown Rash Verified 09/16/23 15:32 Penicillins Allergy Unknown RASH Verified 09/16/23 15:32 phenylephrine Allergy Unknown RASH-OTC Verified 09/16/23 15:32 DECONGESTANTS pseudoephedrine Allergy Unknown RASH-OTC Verified 09/16/23 15:32 DECONGESTANTS Sulfa (Sulfonamide Allergy Unknown RASH Verified 09/16/23 15:32 Antibiotics) doxycycline Allergy Unknown Verified 09/16/23 15:32 Medications Home Medications Medication Instructions Recorded Confirmed Last Taken fexofenadine 180 mg tablet 180 mg PO DAILY PRN Allergy 02/19/19 09/16/23 Unknown Symptoms cholecalciferol (vitamin D3) 25 25 mcg PO DAILY 09/03/21 12/30/22 Unknown mcg (1,000 unit) capsule mupirocin 2 % topical ointment 1 applic topical BID #22 grams 03/11/22 09/16/23 Unknown clobetasol 0.05 % topical cream 1 applic topical BID 2 weeks #45 06/23/22 09/16/23 Unknown grams amlodipine 5 mg tablet 5 mg PO DAILY #90 tabs 07/02/23 09/16/23 Unknown clobetasol 0.05 % topical ointment 1 applic topical BID 2 weeks #45 09/16/23 09/16/23 Unknown grams hydrochlorothiazide 12.5 mg tablet 12.5 mg PO DAILY #90 tabs 02/05/24 Unknown Active Medications Generic Name Dose Route Start Last Admin Trade Name Freq PRN Reason Stop Dose Admin Sodium Chloride 500 mls @ 125 mls/hr 02/15/24 04:00 02/15/24 05:10 Nss IV 03/16/24 03:59 125 mls/hr .Q4H APARNA Administration Past Medical History Medical History (Updated 02/15/24 @ 07:03 by Reyes Ryder DO) Mitral regurgitation trace Hypertension Past Family History Family History Father , age 61 Lung cancer Mother , age 76 dementia and hypertension, was a [place] [facility] resident Hypertension Dementia Aunt Breast cancer paternal Denies family history of Ovarian cancer Colorectal cancer Cancer Uterine cancer Past Surgical History Surgical History History of surgery on lower extremity R hamstring repair History of colonoscopy History of breast biopsy "History of biopsy breast percutaneous needle core" on ccd History of tubal ligation Social History Smoking Status: Never smoker Do You Dip or Chew Tobacco: No Hx Alcohol Use: No Hx Substance Use: No substance use type: does not use Physical Exam Vital Signs Last Vital Signs Temp 36.8 C 02/14/24 22:47 Pulse 85 02/15/24 04:00 Resp 25 H 02/15/24 04:00 BP 204/97 H 02/15/24 04:00 Pulse Ox 97 02/15/24 04:00 O2 Del Method Room Air 02/15/24 03:00 Testing Laboratory Results 02/14/24 23:03 02/14/24 23:03 Urine Color Yellow 02/15/24 01:00 Urine Appearance Clear (Clear) 02/15/24 01:00 Urine pH 7.5 (4.5-7.5) 02/15/24 01:00 Ur Specific [place] 1.034 (1.000-1.030) H 02/15/24 01:00 Urine Protein Negative (Negative) 02/15/24 01:00 Urine Glucose (UA) Negative (Negative) 02/15/24 01:00 Urine Ketones Negative (Negative) 02/15/24 01:00 Urine Nitrite Negative (Negative) 02/15/24 01:00 Ur Leukocyte Esterase Negative (Negative) 02/15/24 01:00
[2024-02-15] MEDS: levoFLOXacin/D5W 750 MG/150 ML BAG IV STA (07:05)
[2024-02-15] MEDS ORDERED: KETOROLAC 30 MG/ML VIAL IV PRN ×2 (08:44→13:09)
[2024-02-15] MEDS ORDERED: DROPERIDOL 5 MG/2 ML VIAL IV PRN (08:44)
[2024-02-15] MEDS ORDERED: ATROPINE SULFATE 0.1 MG/ML 10ML SYR IV PRN (08:44)
[2024-02-15] MEDS: SCOPOLAMINE 1 MG/72 HR TDSY PATCH TD ONE (08:53)
[2024-02-15] MEDS ORDERED: fentaNYL citrate PF 100 MCG/2 ML VIAL ONE (09:53)
[2024-02-15] MEDS ORDERED: MIDAZOLAM HCL 1 MG/ML 2ML VIAL ONE (09:53)
[2024-02-15] MEDS ORDERED: DEXAMETHASONE SOD INJ 4 MG/ML VIAL ONE (09:59)
[2024-02-15] MEDS ORDERED: ROCURONIUM BROMIDE 10 MG/ML 5 ML VIAL IV ONE (09:59)
[2024-02-15] MEDS ORDERED: PROPOFOL IV EMULSION 10 MG/ML 20 ML VIAL IV ONE (09:59)
[2024-02-15] MEDS ORDERED: LIDOCAINE 2% 2 ML VIAL/AMP(20MG/ML) INFIL ONE (09:59)
[2024-02-15] MEDS ORDERED: ONDANSETRON INJ 2 MG/ML 2 ML VIAL ONE (09:59)
[2024-02-15] MEDS ORDERED: ACETAMINOPHEN 1000 MG/100 ML IV IV ONE (10:01)
[2024-02-15] MEDS ORDERED: diphenhydrAMINE 50 MG/ML VIAL ONE (10:19)
[2024-02-15] MEDS ORDERED: KETOROLAC 30 MG/ML VIAL ONE (10:54)
[2024-02-15] MEDS ORDERED: NEOSTIGMINE METHYLSULFATE 1 MG/ML 10ML VIAL ONE (11:04)
[2024-02-15] MEDS ORDERED: GLYCOPYRROLATE 0.2 MG/ML VIAL ONE (11:04)
[2024-02-15] MEDS: BUPIVACAINE/EPINEPHRINE 0.25% 1:200,000 30 ML VIAL ONE (11:05)
--- NOTE | 2024-02-15 11:08 | Post Operative Brief Note ---
Immediate Post Op Note Date of Surgery February 15, 2024 Pre & Post Diagnosis Operation Date: 02/15/24 10:10 Pre-Op Diagnosis: Acute cholecystitis Post-Op Diagnosis: Acute cholecystitis I identified the patient and participated in the time-out.: Yes Procedure Operation Date: 02/15/24 10:10 Actual Procedures p Laparoscopic Cholecystectomy(Not Applicable) - Chilango Hood MD Surgeon Chilango Hood MD [place] Operator MARAL Garcia assisted with tissue retraction, camera op, closure Estimated Blood Loss 5 Findings Consistent with Post-Op Diagnosis
--- NOTE | 2024-02-15 11:09 | Operative Report ---
Post Operative Report Pre & Post Diagnosis Operation Date: 02/15/24 10:10 Pre-Op Diagnosis: Acute cholecystitis Post-Op Diagnosis: Acute cholecystitis I identified the patient and participated in the time-out.: Yes Procedure Operation Date: 02/15/24 10:10 Actual Procedures p Laparoscopic Cholecystectomy(Not Applicable) - Chilango Hood MD Surgeon Chilango Hood MD Irrigation System Installer MARAL Garcia assisted with tissue retraction, camera op, closure Estimated Blood Loss 5 Findings Consistent with Post-Op Diagnosis severe acute cholecystitis Specimens gallbladder Drains none Anesthesia Type General Complications none Description of Procedure the patient was taken to the operating room, and placed supine on the operating table. A timeout was performed, perioperative antibiotics were administered, SCD boots were placed. After adequate anesthesia and analgesia was obtained, the abdomen was prepped and draped in the normal sterile fashion. Local anesthetic was injected into and around the proposed incision sites. An incision was made with a 15 blade scalpel in the supraumbilical region and carried down to the level of the fascia. The fascia was grasped with a trach hook, and a varies needle was used to enter the abdominal cavity. The abdomen was insufflated to a pressure of 15 mmHg, and a 11 mm trocar was placed in this location. A 10 mm, 30 degree laparoscope was placed into the abdominal cavity, and the abdomen was surveyed. The gallbladder was significantly distended and taut. Two 5 mm trochars were placed along the right costal margin, and one 5 mm trocar was placed in the subxiphoid region under direct visualization. The gallbladder was drained of bile with an 18-gauge aspiration needle. Adhesions of the omentum to the gallbladder were taken down with blunt dissection and judicious use of the electrocautery. The gallbladder was grasped and retracted cephalad and laterally, exposing the triangle of [place]. Dissection began in the triangle with a combination of blunt dissection with the [place] dissector, and judicious use of the hook cautery. The cystic duct and cystic artery were dissected free circumferentially, and a critical view of safety was obtained. The cystic duct and cystic artery were clipped and transected, and the gallbladder was removed from the gallbladder fossa with the hook cautery. The camera was switched to a 5 mm, the gallbladder was placed in an Endo Catch bag, and removed via the supraumbilical port site. The camera was switched back to the 10 mm camera, and the abdomen was surveyed again. Hemostasis was checked and attended, and was excellent. The abdomen was copiously irrigated and suctioned free. Again hemostasis was checked and was excellent. All trochars were removed under direct visualization. The abdomen was desufflated. The fascia in the 11 mm port site was closed with a 0 Vicryl suture. The skin was closed with a running 4-0 Monocryl subcuticular stitch. Dermabond was applied. The patient tolerated the procedure without complication, and was transferred in stable condition to the PACU. All instrument, needle, and sponge counts were correct at the end of the case. My ict sales assistant was necessary throughout the procedure for tissue retraction, possible camera operation, and closure of the wounds. I understand that section 1842(b)(7)(D) of the Social Security act generally prohibits Medicare physician fee schedule payment for the services of assistants at surgery in teaching hospitals when qualified residents are available to furnish such services. I certify that the services for which payment is claimed were medically necessary and that no qualified resident was available to perform the services. I further understand that these services are subject to postpayment review by the Medicare carrier. I attest to the content of the Intraoperative Record and any orders documented therein. Any exceptions are noted below.
[2024-02-15] MEDS: fentaNYL citrate PF 100 MCG/2 ML VIAL IV PRN (11:53)
[2024-02-15] MEDS ORDERED: ONDANSETRON INJ 2 MG/ML 2 ML VIAL IV PRN (13:09)
[2024-02-15] MEDS ORDERED: oxyCODONE/ACETAMINOPHEN 5mg/325mg TAB PO PRN (13:09)
[2024-02-15] MEDS ORDERED: PROMETHAZINE 12.5 MG/50.5 ML BAG IV PRN (13:09)
[2024-02-15] MEDS: MoRPHine SULFATE 2 MG/ML CARP IV PRN (13:39)
--- NOTE | 2024-02-15 14:08 | Anesthesiology Progress Note ---
Date of Service February 15, 2024 Anesthesia Post Procedure Vital Signs Vital Signs: Temp Pulse Pulse Pulse Pulse Resp BP 02/15/24 14:05 36.9 C 78 16 02/15/24 13:30 36.6 C 76 16 02/15/24 13:26 02/15/24 13:26 36.8 C 74 16 02/15/24 13:00 36.8 C 74 16 02/15/24 13:00 02/15/24 12:25 36.5 C 77 18 02/15/24 12:15 78 18 02/15/24 12:05 76 18 02/15/24 11:55 78 21 02/15/24 11:45 77 19 02/15/24 11:35 84 25 H 02/15/24 11:25 36.6 C 75 26 H 02/15/24 08:39 37.1 C 96 H 20 02/15/24 08:01 02/15/24 07:25 73 16 02/15/24 04:00 204/97 H 02/15/24 04:00 204/97 H 02/15/24 04:00 85 25 H 204/97 H 02/15/24 03:30 72 21 02/15/24 03:27 71 21 02/15/24 03:00 74 14 166/75 H 02/15/24 02:57 77 16 02/15/24 02:48 69 02/15/24 02:00 165/85 H 02/15/24 01:30 78 16 154/87 H 02/15/24 00:30 76 14 179/83 H 02/15/24 00:00 74 14 178/86 H 02/14/24 23:31 72 26 H 182/80 H 02/14/24 23:08 02/14/24 23:04 77 16 151/78 H 02/14/24 22:47 36.8 C 73 14 02/14/24 22:47 71 02/14/24 22:36 36.6 C 79 16 128/76 BP Pulse Ox Pulse Ox O2 Del Method O2 Del Method O2 Flow Rate O2 Flow Rate 02/15/24 14:05 133/73 95 Nasal Cannula 2 02/15/24 13:30 135/77 94 Nasal Cannula 2 02/15/24 13:26 Nasal Cannula 2 02/15/24 13:26 126/63 93 Nasal Cannula 2 02/15/24 13:00 126/63 94 Nasal Cannula 2 02/15/24 13:00 94 Nasal Cannula 2 02/15/24 12:25 129/59 L 93 Nasal Cannula 2 02/15/24 12:15 119/63 94 Room Air 0 02/15/24 12:05 120/63 92 Room Air 0 02/15/24 11:55 128/64 96 Oxymask 4 02/15/24 11:45 122/60 92 Oxymask 4 02/15/24 11:35 131/67 94 Oxymask 6 02/15/24 11:25 135/60 94 Oxymask 6 02/15/24 08:39 166/78 H 94 Room Air 02/15/24 08:01 139/76 02/15/24 07:25 149/63 H 94 Room Air 02/15/24 04:00 02/15/24 04:00 02/15/24 04:00 97 02/15/24 03:30 96 02/15/24 03:27 95 02/15/24 03:00 94 Room Air 02/15/24 02:57 158/83 H 94 Room Air 02/15/24 02:48 02/15/24 02:00 02/15/24 01:30 98 Room Air 02/15/24 00:30 96 02/15/24 00:00 95 Room Air 02/14/24 23:31 93 Room Air 02/14/24 23:08 93 Room Air 02/14/24 23:04 98 02/14/24 22:47 173/70 H 96 Room Air 02/14/24 22:47 02/14/24 22:36 95 Pain Intensity Abdomen: Pain Intensity: 4 Lower Back: Pain Intensity: 9 Transfer of Care Handoff Completed per policy Notes Mental Status: alert / awake / arousable Patient Amnestic to Procedure: Yes Nausea / Vomiting: adequately controlled Pain: adequately controlled Airway Patency, RR, SpO2: stable & adequate BP & HR: stable & adequate Hydration State: stable & adequate Anesthetic Complications: no major complications apparent
[2024-02-15] MEDS: CHECK SCOPOLAMINE PATCH PLACEMENT SCH (16:19)
[2024-02-15] MEDS: diphenhydrAMINE Capsule 25 MG CAP PO PRN (22:21)
[2024-02-16] MEDS: ENOXAPARIN INJ 40 MG/0.4 ML SYR SQ SCH (07:32)
--- NOTE | 2024-02-16 10:01 | Discharge Summary ---
Date of Service February 16, 2024 Admission HPI Per Admitting Provider 63-year-old woman presents with an 18-hour history of severe sharp stabbing abdominal pain in the right upper quadrant. This began after eating a hamburger for lunch yesterday. She did have vomiting and nausea last evening. She has not eaten anything today. The pain has slightly worsened. She denies fevers or chills. She denies ever having pain like this in the past. Principal Diagnosis acute calculous cholecystitis Discharge Exam Constitutional WD/WN, vitals as above + obese, cooperative and comfortable; no acute distress and not ill appearing Respiratory normal respiratory effort; no respiratory distress Gastrointestinal (Abdomen) Inspection/Auscultation: abdomen normal to inspection and + abdominal surgical incision (C/d/i with dermabond); abdomen not distended Percussion/Palpation: + abdomen tender (at incision sites appropriate postop) and abdomen soft; no guarding, abdomen not rigid and abdomen not firm Skin no rashes, warm and dry Psychiatric A+Ox3, euthymic affect Discharge Data Allergies Allergy/AdvReac Type Severity Reaction Status Date / Time adhesive tape Allergy Intermediate Rash Verified 02/16/24 09:40 erythromycin base Allergy Unknown Rash Verified 02/16/24 09:40 Macrolide Antibiotics Allergy Unknown Unknown - Unverified 02/16/24 09:40 On file w/ [facility] Penicillins Allergy Unknown RASH Verified 02/16/24 09:40 phenylephrine Allergy Unknown RASH-OTC Verified 02/16/24 09:40 [facility] pseudoephedrine Allergy Unknown RASH-OTC Verified 02/16/24 09:40 [facility] Sulfa (Sulfonamide Allergy Unknown RASH Verified 02/16/24 09:40 Antibiotics) doxycycline Allergy Unknown Verified 02/16/24 09:40 Consultations 02/15/24 03:54 ED Decision to Admit Stat Procedures Performed Operation Date: 02/15/24 10:10 Actual Procedures p Laparoscopic Cholecystectomy(Not Applicable) - Chilango Hood MD Ordered Studies 02/14/24 23:07 CT angio abd pelvis wo/w con Stat CTA chest dissec wo/w con [CT angio chest dissec wo/w con] Stat 02/15/24 01:42 US gallbladder Stat Hospital Course (1) Acute cholecystitis: Plan Patient taken to operating room for laparoscopic cholecystectomy on 02/15/[address] Chilango Hood. Found to have acute cholecystitis. Tolerated procedure and transferred to med/surg floor for postoperative care. Diet advanced as tolerated, activity as tolerated, pain management as needed. POD # 1 avss, postop pain controlled, no n,v tolerated diet. Urinating without difficulty. Patient discharged home on POD # 1 in stable condition. Total Time Total Time Spent Total Time Spent (In Minutes): 20 Total Time Includes: Examination of the Patient, Discharge Planning and Medication Reconciliation Discharge Plan Discharge Items Patient Disposition: Home - Self-Care Reason For Visit: cholecystitis Discharge Diagnosis: Acute calculous cholecystitis Activity: Per Instructions section Non-emergency contact: Primary Care Provider and Surgeon Call non-emergency contact if: you have any medication questions, your pain is not controlled, your pain is worsening, you have a fever, your temperature is above 101, your wound has increased redness, your wound has increased drainage and your wound pain has increased Follow-up/Referrals: Chilango Hood MD [Physician] - (2 weeks) Annalisa Gaspar MD [Primary Care Provider] - Diet: Regular Addtl Attending Provider Instructions: Post-Surgical ~Discharge Instructions Activity Recommendations: - lifting limitation: (20 pounds for 2 weeks), - exercise/sex/sports limit: (nonstrenuous for 2 weeks), - driving or machine use limit: (none for 1 week or until pain free), - Shower/bathe limit: (may shower, no submerging incisions underwater for 2 weeks) Diet: - Resume previous diet SPECIAL CARE INSTRUCTIONS: - May shower.. Let water run over area and pat dry. - Leave surgical glue on incisions, this will fall off on its own. - Call the surgeon's office with any questions or concerns - - (ex. temperature higher than 101 degrees F, excessive bleeding or pain). MEDICATIONS: - Resume previous medications unless instructed otherwise by your surgeon. - May alternate extra strength Tylenol and Ibuprofen as needed for pain -650 mg Tylenol every 6 hours as needed - Ibuprofen 600 mg every 6 hours as needed (take with food) FOLLOW UP VISIT: - If not already scheduled, please call the office to schedule a two week follow-up appointment. Office number Pending Studies at Discharge: Yes (pathology) Stand-Alone Forms: My [facility], Smoking Cessation Medications and DC Order Prescriptions: Continued amlodipine 5 mg tablet 5 mg PO DAILY Qty: 90 3RF hydrochlorothiazide 12.5 mg tablet 12.5 mg PO DAILY Qty: 90 3RF clobetasol 0.05 % cream 1 applic topical BID 14 Days Qty: 45 3RF clobetasol 0.05 % ointment 1 applic topical BID 14 Days Qty: 45 1RF cholecalciferol (vitamin D3) 25 mcg (1,000 unit) capsule 25 mcg PO DAILY Rx Instructions: Unable to verify OTC meds at this date/time. fexofenadine 180 mg Tablet 180 mg PO DAILY PRN (Reason: Allergy Symptoms) Rx Instructions: Unable to verify OTC meds at this date/time. Discharge Orders: Discharge Order (Routine); Ordered 02/16/24 Ordered By: Vianey Garcia Admission Data Admit Date/Time: 02/15/24 11:12 Attending Provider: Chilango Hood Admit Provider: Chilango Hood Primary Care Provider: Annalisa Gaspar Other Providers: Chilango Hood Other Interventions: Discharge Summary Assessment (RN) Last Done: 02/16/24 10:02
[2024-02-16 10:03] VITALS: PULSE 77
[2024-02-16 11:11] VITALS: BP 144/72; RESP 16; TEMP 97.7; O2SAT 94
--- NOTE | 2024-02-16 20:56 | Electrocardiogram Report ---
Test Reason : Blood Pressure : */* mmHG Vent. Rate : 69 BPM Atrial Rate : 69 BPM P-R Int : 158 ms QRS Dur : 144 ms QT Int : 458 ms P-R-T Axes : 36 -7 27 degrees QTcB Int : 490 ms Normal sinus rhythm Right bundle branch block Abnormal ECG When compared with ECG of 19-Feb-2019 14:53, Premature supraventricular complexes are no longer Present Confirmed by Hubert Henson ([id number]) on 02/16/2024 8:56:19 PM Referred By: REFERRED SELF Confirmed By: Hubert Henson
== END 2024-02-16 11:24 | disposition home or self-care (01) | DRG 419 ==
LOC: ED 22:33 → 3W 02-15 08:32 → INTOOBSV 02-15 11:12 → 3W 02-15 11:12